=== PATIENT | female | born 1950 | race Caucasian/White ===

== ENCOUNTER 2018-09-24 09:35 | Inpatient (IN) ==
--- NOTE | 2018-08-28 16:17 | PAT Medication Instructions ---
Medication Instructions Date of Service August 28, 2018 Home Medications amlodipine 5 mg PO QPM apixaban [Eliquis] 5 mg PO BID calcium carbonate-mag hydroxid 1 dose PO UD PRN cholecalciferol (vitamin D3) 400 unit PO QAM cyanocobalamin (vitamin B-12) 1,000 mcg PO QAM folic acid 1 mg PO QAM glucos sul 0PYt-bnj-[id number]-C-Mn 2 cap PO QAM methotrexate sodium 3 tab PO WK omega 4-ahv-jhj-fish oil [Fish Oil] 1 cap PO DAILY tofacitinib [Xeljanz XR] 11 mg PO QAM ASK your prescriber and surgeon apixaban [Eliquis] 5 mg PO BID (in order for spinal anesthesia, this medication needs to be stopped 72 hours/3 days prior to surgery- please check if this is okay with prescribing doctor) methotrexate sodium 3 tab PO WK tofacitinib [Xeljanz XR] 11 mg PO QAM STOP taking 2 weeks before surgery (or as soon as possible if surgery is within 2 weeks) glucos sul 9KAz-nfx-tfklx-C-Mn 2 cap PO QAM omega 6-cwz-umw-fish oil [Fish Oil] 1 cap PO DAILY DO NOT take the morning of surgery calcium carbonate-mag hydroxid 1 dose PO UD PRN cholecalciferol (vitamin D3) 400 unit PO QAM cyanocobalamin (vitamin B-12) 1,000 mcg PO QAM folic acid 1 mg PO QAM Take evening before surgery amlodipine 5 mg PO QPM Other Notes If you have any questions please call us at [phone] or [phone] or [phone] or [phone]
--- NOTE | 2018-08-29 12:10 | Anesthesiology Consultation ---
Date of Service August 29, 2018 Assessment & Plan (1) Encounter for pre-operative examination: PCP Clearance (NIKOLAY) 09/13 = "Have received cardio clearance. Pt is an intermediate risk per cardio. Cleared from a medical standpoint as well." Cardiac Clearance = "cleared from a cardiac standpoint at intermediate risk for upcoming surgery. She is also clear to hold Eliquis 3 days prior to surgery." STRESS TEST WAS POSITIVE FOR ISCHEMIA -- NEED RESPONSE FROM CARDIO RE: JUSTIFICATION FOR CLEARANCE WITHOUT FURTHER INTERVENTION/FOLLOW-UP. PER DR. ALCANTAR, IF CARDIO HAS ANY PLANS FOR INTERVENTION (MEDICAL OR PCI), SURGERY MUST BE POSTPONED UNTIL AFTER THIS HAS BEEN DONE. MULTIPLE ATTEMPTS WERE MADE TO GET IN CONTACT WITH DR. CROOK ([facility]). NO RESPONSE OF 1644 ON 09/14. SPOKE TO DR. MARIA--HE WAS NOT AWARE OF + STRESS TEST AND IS AGREEABLE TO POSTPONE SURGERY UNTIL CLARIFICATION FROM CARDIOLOGY OR FURTHER WORKUP OBTAINED. SPOKE TO SHERRY HILTON AT CARDIOLOGY OFFICE AT 1654 ON 09/14 --PATIENT WAS CLEARED DESPITE + STRESS TEST BUT PLAN WAS FOR HER TO F/U AT THEIR OFFICE AFTER SURGERY TO DISCUSS MEDICAL MGMT VS CARDIAC CATH. PATIENT WILL BE CANCELLED AT THIS TIME AND WILL NEED TO F/U WITH CARDIO RE: ABNORMAL STRESS TEST PRIOR TO BEING RESCHEDULED. CARDIOLOGY MADE AWARE AND THEY WILL PLAN TO SEE HER IN THE OFFICE NEXT WEEK (week of 09/17). SURGEON'S OFFICE MA DE AWARE OF CANCELLATION, THEY WILL INFORM PATIENT AND SEND CANCELLATION TO OR. Chart Review Chart Review: Pending: Refer to Additional Notes / Consult section and Patient seen in Pre Admission Testing Teaching & Discussion Instructed NPO after midnight before surgery, except medications with 15 cc of water. Medication instructions provided according to the PAT guidelines. History Surgery Operation Date: 09/17/18 13:00 Proposed Procedures p Left Total Knee Arthroplasty - Radames Maria DO Height/Weight Height: 5 ft 7 in Weight: 106.4 kg Allergies Allergy/AdvReac Type Severity Reaction Status Date / Time aspirin AdvReac Unknown NO ASPIRIN Verified 08/22/18 15:04 DUE TO HX OF BLEEDING ULCER Medications Home Medications Medication Instructions Recorded Confirmed Last Taken amlodipine 5 mg PO QPM 08/22/18 08/22/18 08/21/18 apixaban [Eliquis] 5 mg PO BID 08/22/18 08/22/18 08/22/18 calcium carbonate-mag hydroxid 1 dose PO UD PRN 08/22/18 08/22/18 Unknown [Rolaids] cholecalciferol (vitamin D3) 400 unit PO QAM 08/22/18 08/22/18 08/22/18 [Vitamin D3] cyanocobalamin (vitamin B-12) 1,000 mcg PO QAM 08/22/18 08/22/18 08/22/18 [Vitamin B-12] folic acid 1 mg PO QAM 08/22/18 08/22/18 08/22/18 glucos sul 0PXv-jgm-djkfg-C-Mn 2 cap PO QAM 08/22/18 08/22/18 08/22/18 [Glucosamine Chondroitin] methotrexate sodium 3 tab PO WK 08/22/18 08/22/18 Unknown omega 1-trd-yss-fish oil [Fish Oil] 1 cap PO DAILY 08/22/18 08/22/18 08/22/18 tofacitinib [Xeljanz XR] 11 mg PO QAM 08/22/18 08/22/18 08/22/18 Past Medical History Medical History Acid reflux DIETARY INFLUENCED Afib DX 2016/2017, FOLLOWS WITH DR CROOK High cholesterol History of bleeding ulcers Hypertension Obesity Rheumatoid arthritis Exercise / Class Metabolic Activity III < 4 Walking/Shop/Light housework (Denies CP or SOB with ambulation/housework) Past Family History Family History Other Family history of diabetes mellitus Past Surgical History Surgical History History of endoscopy History of hammertoe correction History of tubal ligation Past Anesthesia History No Hx of Anesthesia Complications and No Family Hx of Anesthesia Complications History of PONV No Hx of PONV and No Hx of Motion Sickness Social History Smoking Status: Former smoker Do You Dip or Chew Tobacco: No Smoking End Date: QUIT 30-40 YRS AGO Hx Alcohol Use: Yes Alcohol type: wine and hard liquor alcohol intake frequency: other Alcohol Intake Frequency Comment: 3 DRINKS A MONTH Hx Substance Use: No substance use type: does not use Review of Systems Pt denies any recent chest pain, shortness of breath, palpitations, cough, fever or URI. Physical Exam Vital Signs BP: 127/72 P: 76bpm SPO2: 95% RA T: 97.6 F R: 16 ENMT Mouth: + dental restorations (lower front incisor implant, few crowns); no chipped teeth and no loose teeth Thyromental Distance: > or= 3.5 Finger Breadths (3.5) Mallampati Class: II Neck normal visual inspection; neck extension not limited (but some pain with full extension) Respiratory normal respiratory effort Auscultation: lungs clear to auscultation bilaterally Cardiovascular Rate/Rhythm: regular rate and regular rhythm Heart Sounds: no murmur Vessels: no carotid bruit Extremities: no edema Testing Chest X-Ray Date: 08/29/18 Findings: + NAD Echocardiogram Date: 09/06/18 EF: 70-75% Normal left ventricular size and systolic function. No left ventricular wall motion abnormalities. Borderline concentric LV hypertrophy. Mild grade 1 diastolic dysfunction. Normal right ventricular size and function. No significant valvular stenosis. Mild MR. No PFO or ASD identified. Estimated PA systolic pressure is normal. Stress Test Date: 09/06/18 Type: nuclear Pharmacologic stress nuclear study is abnormal. Imaging with moderate myocardial ischemia. Abnormal SPECT perfusion imaging with ischemia in the lateral segments. Stress EKG test results normal. Normal left ventricular systolic function with EF 60 to 65%. Cervical Spine Date: 08/29/18 1. Moderate degenerative disc disease within the cervical spine. 2. There is 2 mm of anterolisthesis of C3 on C4 on flexion only. This reduces to neutral on the extension views. 3. The C1-C2 interval is intact. Laboratory Results 08/29/18 12:29 08/29/18 12:24 PT 10.8 Seconds (9.0-12.0) 08/29/18 12:29 INR 1.1 (0.9-1.1) 08/29/18 12:29 APTT 28.2 Seconds (21.0-31.0) 08/29/18 12:29 5.6 % (4.5-5.6) 08/29/18 12:29 Yellow 08/29/18 Unknown Clear (Clear) 08/29/18 Unknown 6.5 (4.5-7.5) 08/29/18 Unknown Ur Specific [place] 1.012 (1.000-1.030) 08/29/18 Unknown Negative (Negative) 08/29/18 Unknown Negative (Negative) 08/29/18 Unknown Negative (Negative) 08/29/18 Unknown Negative (Negative) 08/29/18 Unknown Ur Leukocyte Esterase Negative (Negative) 08/29/18 Unknown Blood Type A Positive 08/29/18 12:29 Antibody Screen NEGATIVE 08/29/18 12:29 08/29/18 Unknown Urine Culture - Final Urine,Clean Catch More than three types of organisms present, all moderate counts mixed probable skin blue. No further identifications or sensitivities to follow. Due to computer error, parts of UA headers and A1C header not pulling into document above. UA negative for bacteria. A1C 5.6% Laboratory Results - last 24 hr 08/29/18 08/29/18 08/29/18 12:24 12:29 12:29 WBC 6.41 RBC 4.18 L Hgb 12.9 Hct 38.3 MCV 91.6 MCH 30.9 MCHC 33.7 RDW Std Deviation 47.7 H RDW Coeff of Isabel 14.3 Plt Count 364 MPV 10.3 Immature Gran % (Auto) 0.3 Neut % (Auto) 76.7 Lymph % (Auto) 14.4 [place] % (Auto) 7.5 Eos % (Auto) 0.5 Baso % (Auto) 0.6 Immature Gran # (Auto) 0.02 Neut # (Auto) 4.92 Lymph # (Auto) 0.92 L [place] # (Auto) 0.48 Eos # (Auto) 0.03 Baso # (Auto) 0.04 PT 10.8 INR 1.1 APTT 28.2 PTT Ratio 1.0 Sodium 140 Potassium 4.1 Chloride 108 H Carbon Dioxide 26 Anion Gap 7.0 BUN 12 Creatinine 0.72 Est Cr Clr Drug Dosing 95.2 Est GFR ( Amer) 100.4 Est GFR (Non-Af Amer) 86.7 BUN/Creatinine Ratio 16.5 Glucose 93 Estimat Average Glucose Hemoglobin A1c Calcium 9.2 Albumin 3.7 Urine Color Urine Appearance Urine pH Ur Specific [place] Urine Protein Urine Glucose (UA) Urine Ketones Urine Blood Urine Nitrite Urine Bilirubin Urine Urobilinogen Ur Leukocyte Esterase Blood Type Antibody Screen 08/29/18 08/29/18 08/29/18 12:29 12:29 Unknown WBC RBC Hgb Hct MCV MCH MCHC RDW Std Deviation RDW Coeff of Isabel Plt Count MPV Immature Gran % (Auto) Neut % (Auto) Lymph % (Auto) [place] % (Auto) Eos % (Auto) Baso % (Auto) Immature Gran # (Auto) Neut # (Auto) Lymph # (Auto) [place] # (Auto) Eos # (Auto) Baso # (Auto) PT INR APTT PTT Ratio Sodium Potassium Chloride Carbon Dioxide Anion Gap BUN Creatinine Est Cr Clr Drug Dosing Est GFR ( Amer) Est GFR (Non-Af Amer) BUN/Creatinine Ratio Glucose Estimat Average Glucose 114 Hemoglobin A1c 5.6 Calcium Albumin Urine Color Yellow Urine Appearance Clear Urine pH 6.5 Ur Specific [place] 1.012 Urine Protein Negative Urine Glucose (UA) Negative Urine Ketones Negative Urine Blood Negative Urine Nitrite Negative Urine Bilirubin Negative Urine Urobilinogen Negative Ur Leukocyte Esterase Negative Blood Type A Positive Antibody Screen NEGATIVE
[2018-08-29 12:53] LABS: Basophils # (auto) 0.04 K/uL (0-0.2); Basophils % (auto) 0.6 %; Eosinophils # (auto) 0.03 K/uL (0-0.5); Eosinophils % (auto) 0.5 %; Hematocrit (blood only) 38.3 % (37-47); Hemoglobin 12.9 g/dL (12.0-16.0); Immature Granulocytes # (auto) 0.02 K/uL (0.00-0.02); Immature Granulocytes % (auto) 0.3 %; Lymphocytes # (auto) 0.92 K/uL (1.2-3.4); Lymphocytes % (auto) 14.4 %; Mean Corpuscular Hgb Conc 33.7 g/dL (32-36); Mean Corpuscular Volume 91.6 fL (80-100); Mean Platelet Volume 10.3 fL (7.4-10.4); Monocytes # (auto) 0.48 K/uL (0.11-0.59); Monocytes % (auto) 7.5 %; Neutrophils # (auto) 4.92 K/uL (1.4-6.5); Neutrophils % (auto) 76.7 %; Platelet Count 364 K/uL (130-400); RDW Coefficient of Variation 14.3 % (11.5-14.5); RDW Standard Deviation 47.7 fL (36.4-46.3); Red Blood Count 4.18 M/uL (4.2-5.4); White Blood Count 6.41 K/uL (4.8-10.8)
--- NOTE | 2018-08-29 12:59 | XRay Report ---
CERVICAL SPINE 3 VIEWS with flexion and extension HISTORY: pre op RA; lateral neutral/flexion/extension COMPARISON: None. FINDINGS: The cervical spine is visualized from C1 through the superior endplate of T1. There is no f racture. No subluxation. Moderate degenerative disc disease from C3 through C7 as well as moderate f acet degenerative changes. There is 2 mm of anterolisthesis of C3 on C4 on flexion only. This reduces to neutral on the extension views. Prevertebral soft tissues and the atlantodens interval are intact . IMPRESSION: 1. Moderate degenerative disc disease within the cervical spine. 2. There is 2 mm of anterolisthesis of C3 on C4 on flexion only. This reduces to neutral on the exten lidia views. 3. The C1-C2 interval is intact. Electronically signed by: Waldo Sampson M.D. 08/29/2018 12:58 PM
[2018-08-29 13:02] LABS: BUN Creatinine Ratio 16.5 (10-20); Creatinine Clr Calc Pharmacy 95.2 ml/min; Est GFR (African American) 100.4; Est GFR (Non-African American) 86.7; Potassium 4.1 mmol/L (3.5-5.1)
[2018-08-29 13:03] LABS: Albumin Level 3.7 gm/dl (3.4-5.0); Calcium 9.2 mg/dl (8.5-10.1)
[2018-08-29 13:06] LABS: INR 1.1 (0.9-1.1); Partial Thromboplastin Time 28.2 Seconds (21.0-31.0); Prothrombin Time 10.8 Seconds (9.0-12.0)
--- NOTE | 2018-08-29 13:06 | XRay Report ---
XR chest Pre-admission PA/Lat CLINICAL HISTORY: 67 years-old Female presenting with preoperative assessment. TECHNIQUE: PA and lateral views of the chest were obtained. COMPARISON: None. FINDINGS: Atherosclerosis of the aortic arch. Cardiac silhouette normal in size. Lungs and pleural spaces clear . Degenerative changes of the thoracic spine. Upper abdomen normal. IMPRESSION: 1. No acute cardiopulmonary disease. Electronically signed by: Anatoly Preston M.D. 08/29/2018 1:04 PM
[2018-08-29 13:42] LABS: Estimated Average Glucose 114 mg/dl; Hemoglobin A1C 5.6 % (4.5-5.6)
[2018-08-29 14:43] LABS: Appearance Urine Clear (Clear); Bilirubin Urine Negative (Negative); Blood Urine Negative (Negative); Color Urine Yellow; Glucose Urine UA Negative (Negative); Ketones Urine Negative (Negative); Leukocyte Esterase Urine Negative (Negative); Nitrite Urine Negative (Negative); Protein Urine Negative (Negative); Specific Gravity Urine 1.012 (1.000-1.030); Urobilinogen Urine Negative (Negative); pH Urine 6.5 (4.5-7.5)
--- NOTE | 2018-09-16 16:29 | History & Physical Report ---
Date of Service September 16, 2018 Assessment & Plan (1) Degenerative joint disease of knee, left: I have indicated the patient for left total knee replacement. The risks, benefits and complications of surgery were explained to the patient which include but not limited to infection, acute blood loss, DVT/PE, injury to nerves, vessels, bone, soft tissue, arthrofibrosis, chronic pain, failure of the prosthesis, knee dislocation, leg length discrepancy, need for additional surgery, cardiac and pulmonary events and . The patient wished to proceed with surgery and informed consent was obtained at this time. We will plan for restarting patients home Eliquis post-operatively for DVT prophylaxis. Upon discharge the patient will be discharged home with home health services. Appropriate clearances by PCP and cardio were obtained. Rheum recs obtained. History of Present Illness Chief Complaint: Left knee pain/DJD Primary Care Provider: Tammy Dowell MD The patient is a 67 year old female who presents with complaints of severe left knee pain and DJD. The patient has failed outpatient conservative treatments to this point which included corticosteroid injection, home exercise/walking program, unable to take NSAIDs due to Elqiuis. The patient's pain and limited function have progressed to the point where they severely hinder their activities of daily living and they no longer tolerate exercise programs. They are requesting to proceed with total knee replacement surgery. Allergies Allergy/AdvReac Type Severity Reaction Status Date / Time aspirin AdvReac Unknown NO ASPIRIN Verified 08/22/18 15:04 DUE TO HX OF BLEEDING ULCER Home Medications Home Medications Medication Instructions Recorded Confirmed Type amlodipine 5 mg PO QPM 08/22/18 08/22/18 History apixaban [Eliquis] 5 mg PO BID 08/22/18 08/22/18 History calcium carbonate-mag hydroxid 1 dose PO UD PRN 08/22/18 08/22/18 History [Rolaids] cholecalciferol (vitamin D3) 400 unit PO QAM 08/22/18 08/22/18 History [Vitamin D3] cyanocobalamin (vitamin B-12) 1,000 mcg PO QAM 08/22/18 08/22/18 History [Vitamin B-12] folic acid 1 mg PO QAM 08/22/18 08/22/18 History glucos sul 0ZCh-jhv-vllec-C-Mn 2 cap PO QAM 08/22/18 08/22/18 History [Glucosamine Chondroitin] methotrexate sodium 3 tab PO WK 08/22/18 08/22/18 History omega 7-ndf-blr-fish oil [Fish Oil] 1 cap PO DAILY 08/22/18 08/22/18 History tofacitinib [Xeljanz XR] 11 mg PO QAM 08/22/18 08/22/18 History Past Med/Surg History Medical History Acid reflux DIETARY INFLUENCED Afib DX , FOLLOWS WITH DR CROOK High cholesterol History of bleeding ulcers Hypertension Obesity Rheumatoid arthritis Surgical History History of endoscopy History of hammertoe correction History of tubal ligation Family History Other Family history of diabetes mellitus Social History Preferred Language: Lao Communication Ability: Effective Pillow Cleaner Required: No Beliefs That Will Affect Care: None Current Living Situation: Spouse Other Information That Helps Us Care for You: No Feels Safe at Home: Yes Smoking Status: Former smoker Do You Dip or Chew Tobacco: No Smoking End Date: QUIT 30-40 YRS AGO Hx Alcohol Use: Yes Alcohol type: wine and hard liquor Hx Substance Use: No Review of Systems Review of Systems: All systems reviewed & are unremarkable except as noted in HPI & below Constitutional: as per Subjective / HPI Physical Exam Physical Exam: LLE NVSI +EHL/FHL/TA/GS SILT grossly, +2 DP pulse, compartments soft NT, limited painful ROM 0 - 100 degrees, crepitus. Constitutional: WD/WN, vitals as above Eyes: PERRL, conjunctivae normal, anicteric sclerae ENMT: external ear and nose normal, oropharynx normal Neck: trachea midline, no thyromegaly Respiratory: normal respiratory effort, lungs clear to auscultation Cardiovascular: RRR, no murmur, no edema Gastrointestinal (Abdomen): normal bowel sounds, soft, nontender, no hepatosplenomegaly Musculoskeletal: no cyanosis or clubbing, extremities motor strength 5/5 Skin: no rashes, warm and dry Neurologic: patellar DTR's 2+ bilat, sensation intact Psychiatric: A+Ox3, euthymic affect Lymphatic: no cervical or axillary lymphadenopathy Results & Data Diagnostic Findings Multiple views of the knee demonstrates severe tricompartmental DJD with complete loss of the medial joint space. +osteophytes, +sclerosis, +subchondral cysts.
[~2018-09-24 09:35] MED LIST: ACETAMINOPHEN 500 MG TAB PO SCH; CEFAZOLIN 2000MG 2,000 MG/15 ML SYR IV SCH; CeleBREX 200 MG CAP PO SCH; FAMOTIDINE 20 MG TAB PO SCH; GABAPENTIN 300 MG PO SCH; LR 15ML/HR IV SCH; METOCLOPRAMIDE HCL 10 MG TABLET PO SCH; ROPIVACAINE 0.5% HCL/PF 150 MG, BUPIVACAINE 0.5% MPF 30 ML, EPINEPHrine 30MG/30ML (OR U... INFIL SCH; TRANEXAMIC ACID 1,000 MG **IV Intra-op IV SCH; TRANEXAMIC ACID 1,000 MG **IV Pre-op IV SCH; dexAMETHasone 4 MG TAB PO SCH
[2018-09-24] MEDS ORDERED: POVIDONE-IODINE OP SOLN 30 ML BTL ONE (09:57)
[2018-09-24] MEDS ORDERED: BACITRACIN INJ 50,000 UNIT VIAL ONE (09:57)
[2018-09-24] MEDS ORDERED: ORTHO JOINT ANESTHETIC ONE (09:57)
[2018-09-24] MEDS ORDERED: BUPIVACAINE 0.5 % 5 MG/1 ML PF 10ML VIAL ONE (10:15)
[2018-09-24] MEDS ORDERED: fentaNYL citrate 100 MCG/2 ML VIAL ONE (10:27)
[2018-09-24] MEDS ORDERED: MIDAZOLAM HCL 1 MG/ML 2ML VIAL ONE (10:27)
--- NOTE | 2018-09-24 11:08 | History & Physical Bridge Note ---
Date of Service September 24, 2018 History & Physical Bridge Note I have examined the patient, reviewed the History & Physical and in the interval since the performance of the History & Physical I have noted the following changes of clinical significance: no changes noted
[2018-09-24] MEDS ORDERED: ePHEDrine sulfate 50 MG/ML AMP IV PRN (11:23)
[2018-09-24] MEDS ORDERED: fentaNYL citrate 100 MCG/2 ML VIAL IV PRN (11:23)
[2018-09-24] MEDS ORDERED: ATROPINE SULFATE 0.1 MG/ML 10ML SYR IV PRN (11:23)
[2018-09-24] MEDS ORDERED: ONDANSETRON INJ 2 MG/ML 2 ML VIAL IV PRN ×2 (11:23→14:44)
[2018-09-24] MEDS ORDERED: PROPOFOL IV EMULSION 10 MG/ML 20 ML VIAL IV ONE ×2 (12:13→13:02)
--- NOTE | 2018-09-24 12:43 | Post Operative Brief Note ---
Immediate Post Op Note v1 Date of Surgery September 24, 2018 Pre & Post Diagnosis Operation Date: 09/24/18 12:00 Pre-Op Diagnosis: Unilateral Primary Osteoarthritis, Left Knee Post-Op Diagnosis: Unilateral Primary Osteoarthritis, Left Knee Procedure Operation Date: 09/24/18 12:00 Actual Procedures p Left Total Knee Arthroplasty(Left) - Radames Pineda DO Surgeon Radames Pineda DO Loss Prevention Manager Grant Chen Estimated Blood Loss 50 Findings Consistent with Post-Op Diagnosis Fluids 1400 CC LR Specimens proximal tibia, distal femur bone fragments Anesthesia Type Spinal MAC Complications none Disposition Disposition: Recovery Room Overlapping Procedure I was present for: the critical portions of procedure. I was immediately available: during the entire case. Back up surgeon: was not required during procedure.
--- NOTE | 2018-09-24 13:42 | XRay Report ---
XR knee LT 2V routine HISTORY: 67 years-old Female Surgical Post Op left knee total joint arthroplasty. History of degener ative joint disease COMPARISON: None available TECHNIQUE: 2 views of the left knee FINDINGS: Left knee total joint arthroplasty and patella resurfacing. There is satisfactory alignment without a cute fracture or retained foreign body. Expected postsurgical soft tissue swelling and deep tissue ai r with surgical drainage catheter. IMPRESSION: Left knee total joint arthroplasty and patella resurfacing demonstrates satisfactory alig nment. The above report was generated using voice recognition software. It may contain grammatical, syntax o r spelling errors. Electronically signed by: Dick Aleman M.D. 09/24/2018 1:41 PM
--- NOTE | 2018-09-24 14:21 | Anesthesiology Progress Note ---
Date of Service September 24, 2018 Anesthesia Post Procedure Vital Signs Vital Signs: Temp Pulse Resp BP BP Pulse Ox 09/24/18 14:05 98.1 F 58 L 20 121/80 96 09/24/18 13:55 61 16 111/83 93 09/24/18 13:45 60 17 128/79 90 09/24/18 13:35 59 L 21 132/72 100 09/24/18 13:25 68 20 121/79 100 09/24/18 13:17 97.0 F L 61 16 110/67 98 09/24/18 10:03 97.3 F L 70 19 126/72 97 Pain Intensity Left Knee: Pain Intensity: 6 Transfer of Care Handoff Completed per policy Notes Mental Status: alert / awake / arousable and participated in evaluation Patient Amnestic to Procedure: Yes Nausea / Vomiting: adequately controlled Pain: adequately controlled Airway Patency, RR, SpO2: stable & adequate BP & HR: stable & adequate Hydration State: stable & adequate Neuraxial Anesthesia: was administered and sensory block is resolving Anesthetic Complications: no major complications apparent and Pt Satisfied with anesthetic care
[2018-09-24] MEDS ORDERED: MAGNESIUM HYDROXIDE SUSP 30 ML UDC PO PRN (14:44)
[2018-09-24] MEDS ORDERED: BISACODYL 10 MG SUPP PR PRN (14:44)
[2018-09-24] MEDS ORDERED: METOCLOPRAMIDE HCL INJ 5 MG/ML 2 ML VIAL IV PRN (14:44)
[2018-09-24] MEDS ORDERED: NALOXONE HCL 0.4 MG/1 ML VIAL/CARP IV PRN (14:44)
[2018-09-24] MEDS ORDERED: OXYCODONE HCL IR 5 MG TAB (IMMEDIATE RELEASE) PO PRN (14:44)
[2018-09-24] MEDS ORDERED: HYDROmorphone INJ 0.5 MG/0.5 ML SYR IV PRN (14:44)
[2018-09-24] MEDS: SODIUM CHLORIDE 0.9% 1000ML 1,000 ML IV SCH ×2 (15:01→23:31)
--- NOTE | 2018-09-24 15:40 | Orthopedic Progress Note ---
Date of Service September 24, 2018 Assessment & Plan (1) Degenerative joint disease of knee, left: Status post left total knee arthroplasty -Ancef x24 -DVT prophylaxis: SCDs, teds, restart patient's home Eliquis postoperative day #1 -Weight-bear as tolerates left lower extremity -PT/OT -Monitor on telemetry -Postoperative x-ray demonstrates well aligned well fixed orthopedic prosthesis without fracture/dislocation -A.m. labs -DC planning: Home with home health Subjective Post Operative Progress Note Patient seen in PACU, comfortable, denies complaints, pain well controlled, no acute issues. Still feeling effects of spinal ansthesia. Review of Systems Review of Systems: All systems reviewed & are unremarkable except as noted in HPI & below Constitutional: as per Subjective / HPI Physical Exam Physical Exam: Left lower extremity physical exam limited secondary to spinal anesthesia, +2 dorsalis pedis pulse, compartments soft nontender, dressing clean dry and intact. Constitutional: WD/WN, vitals as above Results & Data Vital Signs (Past 12 Hours) Vital Signs Temp Pulse Pulse Resp BP BP Pulse Ox 09/24/18 15:23 63 09/24/18 15:00 36.3 C L 59 L 18 110/67 94 09/24/18 14:05 36.7 C 58 L 20 121/80 96 09/24/18 13:55 61 16 111/83 93 09/24/18 13:45 60 17 128/79 90 09/24/18 13:35 59 L 21 132/72 100 09/24/18 13:25 68 20 121/79 100 09/24/18 13:17 36.1 C L 61 16 110/67 98 09/24/18 10:03 36.3 C L 70 19 126/72 97
--- NOTE | 2018-09-24 15:52 | Operative Report ---
Post Operative Report Pre & Post Diagnosis Operation Date: 09/24/18 12:00 Pre-Op Diagnosis: Unilateral Primary Osteoarthritis, Left Knee Post-Op Diagnosis: Unilateral Primary Osteoarthritis, Left Knee Procedure Operation Date: 09/24/18 12:00 Actual Procedures p Left Total Knee Arthroplasty(Left) - Radames Pineda DO Surgeon Radames Pineda DO Diamond Setter Apprentice Grant Chen Estimated Blood Loss 50 Findings Consistent with Post-Op Diagnosis Specimens Proximal tibia and distal femur bone fragments Anesthesia Type Spinal MAC Complications none Disposition Disposition: Recovery Room Indications The patient is a 67-year-old Female presents with long history of severe Left knee tricompartmental DJD and failed outpatient conservative treatments including NSAIDs, bracing, injections and home walking/exercise program. The patient's symptoms have progressed to the point where it has been difficult to perform normal activities of daily living. I have indicated the patient for a Left total knee arthroplasty, the risks and benefits and complications of the procedure include but are not limited to infection bleeding damage to bone, nerves, vessels, surrounding soft tissue, blood clots, loss of function, leg length discrepancy, dislocation, failure of the components, need for additional surgery and . The patient wished to proceed with surgery at this time and informed consent was obtained. Appropriate clearances were obtained. Description of Procedure COMPONENTS USED: Sebastian persona knee system: Femur size 10, Tibia size F, Tibial articulating surface 12 PS, Patella 32. Following induction of Spinal anesthesia, a tourniquet was applied to the proximal aspect of the thigh and the patient's Left leg was prepped and draped in the usual sterile manner. A timeout was performed, patient identified and site indu confirmed. Appropriate pre-operative IV antibiotics were given. The limb was exsanguinated with an Esmarch bandage and tourniquet was inflated to 300 mmHg. A longitudinal midline incision was made over the anterior knee. Subcutaneous tissue was sharply dissected down to fascia. Electrocautery was used for hemostasis. Next a parapatellar arthrotomy was performed. Patella was everted and the knee was flexed. A Ann retractor was used to expose the synovium above on the anterior aspect of the femur and removed down to bone. Next, the anterior fat pad was removed to aid in visualization. The medial face of the tibia was cleared of soft tissue first with a Bovie and a mehta elevator. This tissue was retracted posteriorly using a blunt Hohmann. Next, the extra-medullary tibial cutting guide was placed to the anterior aspect of the tibia. The tibia resection level was set taking 2mm from the defective tibial condyle. Resection depth was once again confirmed with mona wing. The medial and lateral collateral ligament was protected with two Hohmann retractors. The tibia guide was removed and proximal tibial bone fragment removed utilizing straight osteotome, electrocautery and Dorota. Next, the distal femur intramedullary canal was accessed utilizing the step drill. The intramedullary distal femur cutting guide was placed into the canal and pinned into place. The distal femur was cut on the 5 degree +0 setting. Next the cutting guide was removed and the femur was sized. Care was taken to ensure appropriate embedded software developer a ll rotation and 3degree holes were drilled. A size 10 4-in-1 cutting block was placed on the distal end of the femur and secured into place with two short headed screws. Two bent Hohmann retractors were placed to protect the medial and lateral collateral ligaments. The oscillating saw was used to cut anterior, posterior, anterior chamfer and posterior chamfer. The four and one cutting block was removed and bone fragments excised. Laminar manager psychiatry was placed laterally and the ACL and PCL were removed followed by the medial meniscus and posterior medial osteophytes. Aquamantys was utilized for any posterior medial bleeders and Orthomix injected into the posterior medial capsule. A laminar manager psychiatry was then placed in the medial compartment and the lateral meniscus and posterior osteophytes were removed. Aquamantys was utilized for any posterior lateral bleeders and Orthomix injected into the posterior lateral capsule. Next, drop nisa and spacer block were placed with the leg in flexion and extension to assess alignment and flexion/extension gaps. Next, the proximal tibia was assessed and two bent Hohmans were placed medial and lateral to aid in visualization. The appropriate tibia size and rotation was selected and a size F tibial plate was pinned into place with appropriate rotation. Preparation of the tibia was completed utilizing the matching tibial drill and broach. I then turned my attention back to the distal femur in a trial femoral component was impacted into place. Appropriate femoral width was assessed and selected. Next the femur PS box cut guide was placed and cut made with the reciprocal saw and the PS box provisional placed. A trial size 12 PS tibia articular tray was placed and varus-valgus balance assessed in 0 degrees of extension and 30, 60 and 90 degrees of flexion. A final tibial articular surface size 12 PS was chosen. Assess was gained to the patella and caliper utilized to measure width. The patella reamer was utilized and remaining bone removed with oscillating saw. A size 32 patella button was selected and the patella pegs drilled. Trial patella button was placed and tracking was assessed. The knee was found to be well balanced, well aligned with excellent patella tracking. The trials were removed and final components were obtained and assembled. The knee was irrigated copiously with sterile saline solution mixed with bacitracin. Access to the proximal tibia was once again obtained utilizing to the Hohmans and the proximal tibia and distal femur were dried with lap sponges. The final components were cemented into place and all excess cement was removed. A trial tibial articular surface was placed while cemented hardened. Knee stability was once again assessed and the final component inserted. A Betadine soak was performed. After 3 minutes, the hip was once more irrigated with copious sterile saline solution with bacitracin. The knee was injected with the remaining Orthomix which includes a combination of Ropivicaine 0.5% 150mg, Bupivicaine 0.5%/Epinephrine 1:200,000 30ml, Toradol 30mg, Dexamethasone 4mg, Ketamine 10mg, Clonidine 100mcg and NSS 30ml solution. The capsulotomy was closed with #1 Vicryl followed by subcutaneous closure with 2-0 Vicryl suture and a 3-0 V-lock suture. Skin closure was performed using Prineo dressing followed by Vivek, 4 x 4s and kellie wrap. Tourniquet was deflated at 87 minutes. The patient tolerated the procedure well and was taken to the PACU in stable condition. Due to the complex nature of the procedure, the entire surgery was performed with the operational assistance of Grant Chen PA-C. The bilingual office assistant, under direct supervision, was involved in the actual performance of all aspects of the surgical procedure including patient positioning, hemostasis, tissue retraction, instrument management and wound closure. I attest to the content of the Intraoperative Record and any orders documented therein. Any exceptions are noted below.
[2018-09-24] MEDS: CEFAZOLIN 2000MG 2,000 MG/15 ML SYR IV SCH (20:04)
[2018-09-24] MEDS: DOCUSATE SODIUM 100 MG CAP PO SCH (20:07)
[2018-09-24] MEDS ORDERED: SENNA 8.6 MG TAB PO SCH (21:00)
[2018-09-24] MEDS ORDERED: AMLODIPINE BESYLATE 5 MG TAB PO SCH (21:00)
[2018-09-24] MEDS: ACETAMINOPHEN 500 MG TAB PO SCH (21:09)
[2018-09-25] MEDS: CEFAZOLIN 2000MG 2,000 MG/15 ML SYR IV SCH (03:26)
[2018-09-25] MEDS: ACETAMINOPHEN 500 MG TAB PO SCH (05:02)
[2018-09-25 07:31] LABS: Hematocrit (blood only) 33.8 % (37-47); Mean Corpuscular Hgb Conc 32.5 g/dL (32-36); Mean Corpuscular Volume 92.1 fL (80-100); Mean Platelet Volume 10.2 fL (7.4-10.4); Platelet Count 312 K/uL (130-400); RDW Standard Deviation 46.7 fL (36.4-46.3); Red Blood Count 3.67 M/uL (4.2-5.4); White Blood Count 16.21 K/uL (4.8-10.8)
--- NOTE | 2018-09-25 08:03 | Anesthesiology Progress Note ---
Date of Service September 25, 2018 Anesthesia Post Procedure Vital Signs Vital Signs: Temp Pulse Pulse Pulse Resp BP BP 09/25/18 07:01 66 09/25/18 07:00 36.6 C 64 18 113/72 09/25/18 05:10 36.5 C 60 18 114/72 09/24/18 23:50 36.9 C 68 18 121/75 09/24/18 15:23 63 09/24/18 15:00 36.3 C L 59 L 18 110/67 09/24/18 14:24 36.7 C 57 L 20 118/76 09/24/18 14:05 36.7 C 58 L 20 121/80 09/24/18 13:55 61 16 111/83 09/24/18 13:45 60 17 128/79 09/24/18 13:35 59 L 21 132/72 09/24/18 13:25 68 20 121/79 09/24/18 13:17 36.1 C L 61 16 110/67 09/24/18 10:03 36.3 C L 70 19 126/72 Pulse Ox 09/25/18 07:01 09/25/18 07:00 95 09/25/18 05:10 93 09/24/18 23:50 94 09/24/18 15:23 09/24/18 15:00 94 09/24/18 14:24 92 09/24/18 14:05 96 09/24/18 13:55 93 09/24/18 13:45 90 09/24/18 13:35 100 09/24/18 13:25 100 09/24/18 13:17 98 09/24/18 10:03 97 Notes Mental Status: alert / awake / arousable and participated in evaluation Nausea / Vomiting: adequately controlled Pain: adequately controlled Airway Patency, RR, SpO2: stable & adequate BP & HR: stable & adequate Hydration State: stable & adequate Neuraxial Anesthesia: sensory block resolved
[2018-09-25 08:17] LABS: BUN Creatinine Ratio 17.8 (10-20); Creatinine Clr Calc Pharmacy 94.8 ml/min; Est GFR (African American) 98.8; Est GFR (Non-African American) 85.2; Potassium 4.3 mmol/L (3.5-5.1)
[2018-09-25] MEDS: DOCUSATE SODIUM 100 MG CAP PO SCH (08:18)
[2018-09-25] MEDS ORDERED: MULTIVITAMIN TAB PO SCH (09:00)
[2018-09-25] MEDS ORDERED: APIXABAN 5 MG TABLET PO SCH (09:00)
--- NOTE | 2018-09-25 10:13 | Orthopedic Progress Note ---
Date of Service September 25, 2018 Assessment & Plan (1) Degenerative joint disease of knee, left: Status post left total knee arthroplasty POD#1 -Ancef x24 -DVT prophylaxis: SCDs, teds, restart patient's home Eliquis postoperative day #1 -Weight-bear as tolerates left lower extremity -PT/OT -Monitor on telemetry - no issues overnight -Postoperative x-ray demonstrates well aligned well fixed orthopedic prosthesis without fracture/dislocation -A.m. labs - hgb 11.0 -DC planning: Home with home health Subjective Post Operative Progress Note Patient seen sitting up in bed, comfortable, denies complaints, pain well controlled, no acute issues. Review of Systems Review of Systems: All systems reviewed & are unremarkable except as noted in HPI & below Constitutional: as per Subjective / HPI Physical Exam Physical Exam: LLE NVSI +EHL/FHL/TA/GS SILT grossly, +2 DP pulse, compartments soft NT, dressing cdi. Results & Data Vital Signs (Past 12 Hours) Vital Signs Temp Pulse Pulse Resp BP Pulse Ox 09/25/18 07:01 66 09/25/18 07:00 36.6 C 64 18 113/72 95 09/25/18 05:10 36.5 C 60 18 114/72 93 09/24/18 23:50 36.9 C 68 18 121/75 94
--- NOTE | 2018-09-26 20:29 | Discharge Summary ---
Date of Service September 26, 2018 Admission HPI Per Admitting Provider The patient is a 67 year old female who presents with complaints of severe left knee pain and DJD. The patient has failed outpatient conservative treatments to this point which included corticosteroid injection, home exercise/walking program, unable to take NSAIDs due to Elqiuis. The patient's pain and limited function have progressed to the point where they severely hinder their activities of daily living and they no longer tolerate exercise programs. They are requesting to proceed with total knee replacement surgery. Principal Diagnosis Left total knee replacement Discharge Exam LLE NVSI +EHL/FHL/TA/GS SILT grossly, +2 DP pulse, compartments soft NT, dressing cdi. Constitutional WD/WN, vitals as above Discharge Data Allergies Allergy/AdvReac Type Severity Reaction Status Date / Time aspirin AdvReac Unknown NO ASPIRIN Verified 09/24/18 09:58 DUE TO HX OF BLEEDING ULCER Consultations 09/24/18 14:44 Consult Case Management - Discharge Planning Routine Procedures Performed Operation Date: 09/24/18 12:00 Actual Procedures p Left Total Knee Arthroplasty(Left) - Radames Pineda DO Ordered Studies 09/17/18 05:00 US - OR guided needle placemen Routine 09/24/18 05:00 US - OR guided needle placemen Routine Hospital Course (1) Degenerative joint disease of knee, left: The patient is a 67 -year-old female who presents with long standing history of severe left knee DJD and failed outpatient conservative treatments including NSAIDs, bracing, injections and home walking/exercise program. The patient's symptoms have progressed to the point where it has been difficult to perform even normal activities of daily living. I indicated the patient for a left total knee arthroplasty, the risks, benefits and complications of the procedure include but not limited to infection, bleeding, damage to bone, nerves, vessels, surrounding soft tissue, may develop blood clots, loss of function, leg length discrepancy, dislocation, failure of the components, loosening of the components, the need for additional surgery and . The patient wished to proceed with surgery at this time and informed consent was obtained. Hospital Course: On 09/24/18 the patient was taken to the operating room, adequate anesthesia administered and underwent a left total knee arthroplasty. The patient tolerated the procedure well and was taken to the PACU in stable condition. Post-operatively the patient was started on a DVT ppx medication and given appropriate IV antibiotics. Consults were placed to physical therapy, occupational therapy and case management. On POD#1, the patient did well overnight and their pain was well controlled. Labs were drawn and the Hgb was 11.0. The patient progressed well with PT. Dressings were changed at this time and the incision was clean, dry and intact. The patients hospital stay was relatively uneventful and they were deemed stable by the orthopedic team and consultants to be discharged home with on 09/25/18. Discharge Instructions: Upon discharge the patient may weight bear as tolerates through their operative extremity. They were instructed to keep the incision clean and dry at all times. The patient may shower but should not submerge the incision, avoid bathing, pools and hot tubes. The patient was given a script for pain medication and should take as instructed. The patient was given a script for DVT ppx ASA 325mg BID and should take as directed. The patient was instructed to not drive or travel for long distances until cleared to do so. If the patient develops any symptoms of fevers, chills, nausea, vomiting, increased redness, swelling, pain or drainage from the surgical site, they should notify the office and/or proceed to the nearest emergency room. The patient should follow up in 10-14 days after surgery for their routine post-operative follow-up appointment and should call the office to confirm the date and time. Status post left total knee arthroplasty POD#1 -Ancef x24 -DVT prophylaxis: SCDs, teds, restart patient's home Eliquis postoperative day #1 -Weight-bear as tolerates left lower extremity -PT/OT -Monitor on telemetry - no issues overnight -Postoperative x-ray demonstrates well aligned well fixed orthopedic prosthesis without fracture/dislocation -A.m. labs - hgb 11.0 -DC planning: Home with home health Total Time Total Time Spent Total Time Spent (In Minutes): >60 minutes Total Time Includes: Examination of the Patient, Discharge Planning, Medication Reconciliation and Communication With Other Providers Discharge Plan Discharge Items Patient Disposition: Home - Home Health Services Reason For Visit: Unilateral Primary Osteoarthritis, Left Knee Discharge Diagnosis: s/p Left total knee replacement Condition: Good Discharge Goals: Decrease discomfort, Improve function, Increase independence and Therapeutic intervention Activity: Per 'Additional Instructions' section Lifting: Wait until after follow-up appointment Bathing Comment: No bathing, pools or hot tubs Sexual Activity: Wait until after follow-up appointment Exercise/Sports: Wait until after follow-up appointment Driving/Machine Use Comment: No driving till cleared by your surgeon Weightbearing: Left weightbearing Non-emergency contact: Primary Care Provider and Surgeon Call non-emergency contact if: you have any medication questions, your symptoms worsen, your pain is not controlled, your pain is worsening, your pain is unusual for you, your pain is concerning for you, you have a fever, your temperature is above 101, your wound has increased redness, your wound has increased drainage and your wound pain has increased Follow-up/Referrals: Tammy Dowell MD [Primary Care Provider] - Diet: Regular Addtl Provider Instructions: ACTIVITY RECOMMENDATIONS: SELF CARE INSTRUCTIONS AFTER TOTAL KNEE REPLACEMENT A. You may need to continue a physical therapy program after discharge from the hospital. There are several options available to you. Your doctor will assist you in selecting the best one for you. 1. An out-patient facility 2 to 3 times a week for therapy or home therapy. 2. Continue working on all exercises taught to you in the hospital. Your goals should be to increase bending of your knee to 90 degrees and beyond and to fully straighten your knee. B. You may progress at your own pace from walking with a walker or crutches to a cane; then to no assistive devices. C. Make walking a part of your daily routine. Be up as much as comfortable with rest periods throughout the day. Rest with leg elevation is very important. Use the ice wrap frequently for the first 3-4 weeks. D. There are no restrictions on activities. You may ride in a car, shop, participate in sales and leasing consultant and all social activities. E. Wear the long elastic stockings (BRENDA hose) 20 hours a day for 2 weeks after surgery. They can be removed several times a day for laundering and for a bath. F. You may shower, no tub baths until cleared by your doctor. SPECIAL CARE INSTRUCTIONS: VERY IMPORTANT TO READ AND REVIEW A. There are a few signs you need to watch for after you are home. Call [facility] if you notice any of the followin. Increased severe knee pain. Some pain is expected especially when you exercise. 2. Increased swelling in your leg or knee; pain or swelling of the calf muscle in either lower leg. 3. Any fluid drainage from the incision. 4. Shortness of breath or chest pain. B. Please call [facility] at if you have any concerns or questions about your operation or recovery. The doctor or his nurse will return your call promptly. C. You must take antibiotics before dental work, bladder, bowel or other surgery. Your doctor will provide you with a permanent care to carry describing this precaution. IMPORTANT: * REMEMBER TO TAKE YOUR HOME MED ELIQUIS UNLESS OTHERWISE DIRECTED. THIS IS YOUR BLOOD THINNER. * HIGH RISK PATIENTS MAY BE PRESCRIBED A STRONGER BLOOD THINNER. THIS WILL BE PROVIDED AT DISCHARGE. * CALL IF INCREASED PAIN, REDNESS, DRAINAGE OR FEVER GREATER THAT 101. * WEAR BRENDA HOSE 20 HOURS PER DAY FOR 2 WEEKS. *DERMABOND Prineo- This is a mesh tape dressing that is covered with glue. It should remain in place until the incision is properly healed, usually 10-14 days. This dressing is designed to naturally slough off. You may trim the excess mesh tape as it peels off. Incision may be briefly wet in a shower. Dry immediately by blotting with a clean, dry towel. Do not bath or swim until instructed by your doctor. Do not scratch, rub, or pick at the dressing. Do not apply any topical ointments or lotions until dressing is completely removed and/or instructed by your doctor. There may be a small piece of suture material at one end of your incision. Do not pull or trim this. If it is bothersome or catching on clothing, you may cover it with a band-aid. IF INCISION IS LEAKING THROUGH DRESSING, CALL THE OFFICE . FOLLOW UP VISIT: If appointment is not already scheduled: Please call [facility] to make a follow-up appointment for 2 weeks after your surgery at . Prescriptions: New acetaminophen [Tylenol Extra Strength] 500 mg Tablet 1,000 mg PO Q8 PRN (Reason: pain) Qty: 90 RF: 0 oxycodone 5 mg Tablet 5 mg PO Q6H MDD 6 tabs PRN (Reason: pain) Qty: 30 RF: 0 sennosides [Senokot] 8.6 mg Tablet 17.2 mg PO HS PRN (Reason: constipation) Qty: 28 RF: 0 Continued cyanocobalamin (vitamin B-12) [Vitamin B-12] 1,000 mcg Tablet 1,000 mcg PO QAM RF: 0 amlodipine 5 mg Tablet 5 mg PO QPM RF: 0 folic acid 1 mg Tablet 1 mg PO QAM RF: 0 cholecalciferol (vitamin D3) [Vitamin D3] 400 unit Capsule 400 unit PO QAM RF: 0 omega 2-dlu-bjd-fish oil [Fish Oil] 1,000 mg (120 mg-180 mg) Capsule 1 cap PO DAILY RF: 0 Eliquis 5 mg Tablet 5 mg PO BID RF: 0 Glucosamine Chondroitin 550-30-1 mg Capsule 2 cap PO QAM RF: 0 Discontinued methotrexate sodium 2.5 mg Tablet 3 tab PO WK RF: 0 Xeljanz XR 11 mg Tablet Extended Release 24 Hr 11 mg PO QAM RF: 0 Stand-Alone Forms: [facility] Discharge Orders: Discharge Order (Routine); Ordered 09/25/18 Ordered By: Radames Pineda Admission Data Admit Date/Time: 09/24/18 13:21 Attending Provider: Radames Pineda Admit Provider: Radames Pineda Primary Care Provider: Tammy Dowell Service: Surgical Services Other Interventions: Discharge Summary Assessment (RN) Last Done: 09/25/18 11:29 DC Date/Time DO NOT enter until pt leaves facility: 09/25/18 12:41
== END 2018-09-25 12:41 | disposition home health service (06) | DRG 470 ==
LOC: ASU 09:35 → 2W 13:21